=== PATIENT | female | born 1975 | race African-American/Black ===

== ENCOUNTER 2018-07-27 02:18 | Inpatient (IN) | payer BC, OTHER ==
[2018-07-27] VITALS (16 sets, daily range): BP systolic 117–146; BP diastolic 59–75
[~2018-07-27] VITALS: Ht 152.4 cm; Wt 111.6 kg
[~2018-07-27 02:18] MED LIST: ACETAMINOPHEN650 M5 PO; ACIPHEX 20 MG T20 MG PO; BENTYL10 MG PO; CIPROFLOXACIN500 M1 PO; FLAGYL500 MG PO; GLYCOPYRROLATE; LORTAB 5 MG/5001 TA1 PO; NORCO 5-325 TA1 EACH PO; PANTOPRAZOLE SO40 M1 PO; PHENERGAN 25 MG25 M1 PO; ZESTRIL10 MG PO; ZOFRAN ODT4 MG PO; ZOFRAN4 MG PO
[2018-07-27 04:28] LABS: HEMATOCRIT 25.5 % (37.0-47.0); HEMOGLOBIN 8.5 gm/dL (12.0-15.0); MCH 30.8 pg (26.0-34.0); MCHC 33.4 g/dL (28.0-37.0); MCV 92.4 fL (80.0-100.0); RBC 2.76 mil/uL (4.20-5.00); RDW 12.7 % (10.5-14.5); WBC 3.9 thou/uL (4.0-11.0)
[2018-07-27 04:52] LABS: ANION GAP 13 mmol/L (7-16); BUN 7 mg/dL (7-18); CHLORIDE 119 mmol/L (98-107); CO2 16 mmol/L (21-32); CREATININE 0.4 mg/dL (0.6-1.0); DIRECT BILIRUBIN < 0.1 mg/dL (<0.1-0.3); GLUCOSE 100 mg/dL (74-106); LIPASE 24 U/L (73-393); SGOT 9 U/L (15-37); SGPT 10 U/L (30-65); SODIUM 148 mmol/L (136-145); TOTAL BILIRUBIN 0.2 mg/dL (<0.1-1.0); TOTAL PROTEIN 4.2 g/dL (6.4-8.2)
[2018-07-27 04:56] LABS: CALCIUM 5.2 mg/dL (8.5-10.1); POTASSIUM 1.7 mmol/L (3.5-5.1)
[2018-07-27 05:04] LABS: URINE BILIRUBIN NEGATIVE (Negative); URINE BLOOD NEGATIVE (Negative); URINE CLARITY CLEAR; URINE COLOR YELLOW; URINE GLUCOSE-RANDOM* NEGATIVE (Negative); URINE KETONES 3+ (Negative); URINE LEUKOCYTES-REFLEX NEGATIVE (Negative); URINE NITRITE-REFLEX NEGATIVE (Negative); URINE PROTEIN (DIPSTICK) NEGATIVE (Negative); URINE SPECIFIC GRAVITY 1.015 (1.005-1.035); URINE UROBILINOGEN 0.2 E.U./dl (0.2-1.0)
--- NOTE | 2018-07-27 07:24 | NUR ---
DAUGHTER UPDATED ON PT PLAN, ADMISSION TO ICU, CAUSE
--- NOTE | 2018-07-27 09:14 | EKG ---
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: SUZANNA : 1975 Requested By: Anya Pacheco Order Number: [id number] MD: Claudio Ponce Measurements Intervals [place] Rate: 58 P: 61 RI: 167 QRS: 47 QRSD: 100 T: 28 QT: 501 QTc: 493 Interpretive Statements Sinus rhythm Atrial premature complex Prolonged QT interval Compared to ECG 02/21/2013 00:35:05 Atrial premature complex(es) now present Electronically Signed On 07-27-2018 9:14:32 CDT by Claudio Ponce [email or web address] ��������������������������������������������� <ELECTRONICALLY SIGNED> ���������������������������������������� By: Claudio Ponce MD, [facility] ��������������������������������������������� 07/27/18 0914 043 0 Claudio Ponce MD, [facility] /EPI
[2018-07-27 11:07] LABS: CREATININE 0.8 mg/dL (0.6-1.0); MAGNESIUM 2.5 mg/dL (1.8-2.4)
[2018-07-27 11:10] LABS: CALCIUM 8.7 mg/dL (8.5-10.1); POTASSIUM 4.1 mmol/L (3.5-5.1)
--- NOTE | 2018-07-27 15:08 | NUR ---
PT ADMITTED RELATED TO VOMITING, HYPO ELECTROLYTES. CM REVIEWED CHART AND SPOKE WITH CARE TEAM. CM MET WITH PT AT BEDSIDE THIS DAY. PT IS A&O X4. CM ROLE INTRODUCED. PT INDICATED SHE LIVES IN A CONDO WITH HER SON WITH 5 STEPS TO ENTER AND A FULL FLIGHT OF STEPS INSIDE. 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 PT INDICATED SHE HAD HH IN THE PAST WITH A PREVIOUS [facility] BUT NOTHING RECENTLY. PT INICATED SHE PLANS TO RETURN HOME ONCE MEDICALLY STABLE. CM TO FOLLOW INDICATED WITH DC PLANNING.
[2018-07-27] MEDS ORDERED: LOSARTAN-HCTZ1 EAC1 PO (18:25)
[2018-07-27] MEDS ORDERED: CELEXA10 MG PO (18:27)
[2018-07-27] MEDS ORDERED: BENTYL 20 MG TA20 M1 PO (18:28)
[2018-07-27 19:16] LABS: ALBUMIN 3.2 g/dL (3.4-5.0); CALCIUM 8.3 mg/dL (8.5-10.1); CREATININE 0.7 mg/dL (0.6-1.0); MAGNESIUM 2.1 mg/dL (1.8-2.4); POTASSIUM 3.7 mmol/L (3.5-5.1); TOTAL BILIRUBIN 0.2 mg/dL (<0.1-1.0); TOTAL PROTEIN 6.6 g/dL (6.4-8.2)
[2018-07-28] VITALS (13 sets, daily range): BP systolic 116–152; BP diastolic 50–88
--- NOTE | 2018-07-28 05:28 | NUR ---
ASSUMED PT CARE AT 1900 WITH NO SIGN OF DISTRESS NOTED. PT IS ALERT AND ORIENTED. VITAL SIGNS STABLE. ASSESSMENT COMPLETED AND CHARTED. SCHEDULED MEDS ADMINISTERED TO PT. PT IS STABLE THROUGHOUT THE NIGHT. DENIES ANY FURTHER NEEDS AT THIS TIME.
[2018-07-28 09:18] LABS: ABSOLUTE NEUTROPHILS 2.5 thou/uL (1.4-8.2); BASOPHILS 0.9 % (0.0-2.0); EOSINOPHILS 0.4 % (0.0-3.0); HEMATOCRIT 33.8 % (37.0-47.0); LYMPHOCYTES 39.9 % (24.0-44.0); MCH 30.9 pg (26.0-34.0); MCHC 33.8 g/dL (28.0-37.0); MCV 91.5 fL (80.0-100.0); MONOCYTES 8.7 % (1.0-8.0); PLATELET COUNT 230 thou/uL (150-400); POLYS 50.1 % (36.0-66.0); RBC 3.69 mil/uL (4.20-5.00); RDW 13.5 % (10.5-14.5); WBC 4.9 thou/uL (4.0-11.0)
[2018-07-28 09:31] LABS: HEMOGLOBIN 11.4 gm/dL (12.0-15.0)
[2018-07-28 09:32] LABS: CALCIUM 8.5 mg/dL (8.5-10.1); CREATININE 0.9 mg/dL (0.6-1.0); POTASSIUM 3.9 mmol/L (3.5-5.1)
[2018-07-28] MEDS ORDERED: MIRALAX17 GM PO (11:04)
[2018-07-28] MEDS ORDERED: TYLENOL325 MG PO (11:04)
--- NOTE | 2018-07-28 11:58 | NUR ---
AAOX4 VERY PLESANT AND COOPERTIVE. DENIES NAUSEA AND PAIN. RIGHT WRIST WITH DRY OTTONIEL. IV'S D/C'D FROM RIGHT IJ AND LEFT HAND. REVIEWED DISCHARGE PAPERS AND PATIENT VERBALIZED UNDERSTANDING AND DENIES QUESTIONS. DISHCARGED TO HOME ACCOMPAINIED BY MOTHER.
== END 2018-07-28 12:01 | disposition home or self-care (01) | DRG 641 ==
LOC: ER 02:18 → EROBS 05:48 → ICU 05:48 → EROBS 07:36 → ICU 07:46
PROVIDERS: Emergency Medicine; Nurse Practitioner; ADMIT Internal Medicine
DX: E87.6 Hypokalemia (principal); E46 Unspecified protein-calorie malnutrition; Z68.42 Body mass index [BMI] 45.0-49.9, adult; K58.9 Irritable bowel syndrome, unspecified; D64.9 Anemia, unspecified; Z79.1 Long term (current) use of non-steroidal anti-inflammatories (NSAID); Z79.899 Other long term (current) drug therapy; Z88.6 Allergy status to analgesic agent; Z88.8 Allergy status to other drugs, medicaments and biological substances
CPT/HCPCS: 10078

== ENCOUNTER 2018-08-28 01:19 | Inpatient (IN) | payer BC, OTHER ==
[~2018-08-28] VITALS: Ht 170.2 cm; Wt 103.9 kg
[2018-08-28] VITALS (7 sets, daily range): BP systolic 135–179; BP diastolic 62–92
[~2018-08-28 01:19] MED LIST changes: +BENTYL 20 MG TA20 M1 PO; +CELEXA10 MG PO; +LOSARTAN-HCTZ1 EAC1 PO; +MIRALAX17 GM PO; +TYLENOL325 MG PO
[2018-08-28] MEDS ORDERED: KEFLEX500 M1 PO (01:32)
[2018-08-28] MEDS ORDERED: AZELASTINE137 MCG/0. INH (01:32)
[2018-08-28] MEDS ORDERED: IBUPROFEN 600600 M1 PO (01:34)
[2018-08-28] MEDS ORDERED: TRAMADOL 50 MG50 MG PO (01:34)
[2018-08-28] MEDS ORDERED: 24HR ALLERGY REL5 MG PO (01:34)
[2018-08-28 01:43] LABS: ABSOLUTE NEUTROPHILS 7.2 thou/uL (1.4-8.2); BASOPHILS 0.4 % (0.0-2.0); EOSINOPHILS 0.2 % (0.0-3.0); HEMATOCRIT 38.7 % (37.0-47.0); LYMPHOCYTES 13.3 % (24.0-44.0); MCH 30.6 pg (26.0-34.0); MCHC 33.7 g/dL (28.0-37.0); MCV 90.8 fL (80.0-100.0); PLATELET COUNT 305 thou/uL (150-400); POLYS 77.1 % (36.0-66.0); RBC 4.26 mil/uL (4.20-5.00); WBC 9.3 thou/uL (4.0-11.0)
[2018-08-28 02:03] LABS: ANION GAP 13 mmol/L (7-16); BUN 18 mg/dL (7-18); CALCIUM 9.3 mg/dL (8.5-10.1); CHLORIDE 100 mmol/L (98-107); CO2 26 mmol/L (21-32); GLUCOSE 145 mg/dL (74-106); LIPASE 30 U/L (73-393); SGOT 12 U/L (15-37); SGPT 20 U/L (30-65); SODIUM 139 mmol/L (136-145); TOTAL BILIRUBIN 0.4 mg/dL (<0.1-1.0); TOTAL PROTEIN 7.9 g/dL (6.4-8.2); TROPONIN-I <0.06 ng/mL (<0.06)
[2018-08-28 02:04] LABS: POTASSIUM 2.9 mmol/L (3.5-5.1)
--- NOTE | 2018-08-28 02:19 | NUR ---
PATIENT TO CT AT THIS TIME
--- NOTE | 2018-08-28 03:31 | NUR ---
SECOND IV PLACED FOR MEDICATION ORDERS TO INFUSE
--- NOTE | 2018-08-28 04:14 | NUR ---
HANDOFF TOOL SENT TO CCU. INPAITENT TESTER SOUNDMORIAH AT BEDSIDE FOR PATIENT EVALUATION
--- NOTE | 2018-08-28 04:24 | NUR ---
REPORT TO AISHA ON [facility]
--- NOTE | 2018-08-28 07:16 | NUR ---
PT ARRIVED FROM ER VIA CART. PLACED IN ROOM 349. ADMISSION ASSESSMENTS COMPLETED. PT REPORTING MIDLINE UPPER ABDOMINAL PAIN OVER THE PAST 24 HOUSR THAT BEGAN ALONG WITH NAUSEA AND VOMITING. DENIES ANY COFFEE GROUND, DARK OR GREEN COLORED EMESIS. NO BM SINCE THU, THE DAY OF HER PAROTIDECTOMY. LAB VALUES NOTED. ORDERS IN PROGRESS.
[2018-08-28 08:45] LABS: MAGNESIUM 2.3 mg/dL (1.8-2.4); POTASSIUM 3.3 mmol/L (3.5-5.1)
--- NOTE | 2018-08-28 11:18 | EKG ---
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: tia : 1975 Requested By: Sumit Pacheco Order Number: [id number] MD: Claudio Ponce Measurements Intervals [place] Rate: 62 P: 69 [place]: 156 QRS: 44 QRSD: 95 T: 32 QT: 446 QTc: 453 Interpretive Statements Sinus rhythm Nonspecific T wave abnormality Compared to ECG 07/27/2018 04:31:46 Atrial premature complex(es) no longer present Prolonged QT interval no longer present Electronically Signed On 08-28-2018 11:18:31 CDT by Claudio Ponce [email or web address] ��������������������������������������������� <ELECTRONICALLY SIGNED> ���������������������������������������� By: Claudio Ponce MD, [facility] ��������������������������������������������� 08/28/18 1118 0123 0123 Claudio Ponce MD, [facility] /EPI
--- NOTE | 2018-08-28 12:02 | NUR ---
ASSUMED CARE OF PT AT 0700. PT AOX4 C/O NAUSEA AND ABDOMINAL DISCOMFORT. SMALL BM AFTER SUPP THIS AM. NOW DRINKING MIRALAX AND MAG CITRATE. COMPAZINE ADDED TO REGIMEN. PT SAYS NAUSEA SLOWLY IMPROVING. CT UNREMARKABLE. UP W/ STEADY GAIT AND SBA. SINUS JAMAAL ON TELEMETRY. WILL CONT TO MONITOR
[2018-08-29 03:01] VITALS: BP 154/78
--- NOTE | 2018-08-29 03:36 | NUR ---
SLEPT PART OF SHIFT. UP AD LESLY WITH SLOW STEADY GAIT. PATIENT STATES WILL CALL FOR ASSISTANCE IF SHE GETS WEAKER OR DIZZY. MAINTAIN SAFE ENVIRONMENT. REMAINS WITH FREQUENT EPISODES OF NAUSEA WITH VOMITING. COMPAZINE GIVES SOME RELIEF. STATES IT IS SOME BETTER. WORKING ON GOALS AND PLAN OF CARE FOR NOC. NOT PROGRESSING AT THIS TIME TOWARDS DISCHARGE GOALS. CONTINUE TO ASSES CLOSELY. HAS SOME UPPER ABDOMANAL PAIN WITHOUT NEED OF MEDICATION. ERIKA DRAIN REMAINS IN PLACE TO LEFT SIDE OF NECK.
--- NOTE | 2018-08-29 03:42 | NUR ---
2300 BP 167/78. IV HYDRALIZINE GIVEN. PATIENT SLEPT FOR AWILE. 0305 BP NOW 154/78. DENIES NEED FOR PRESENT NAUSEA MED OR PAIN MEDICATION.
[2018-08-29 06:06] LABS: HEMOGLOBIN 11.5 gm/dL (12.0-15.0); MCH 30.7 pg (26.0-34.0); MCHC 33.9 g/dL (28.0-37.0); MCV 90.5 fL (80.0-100.0); RBC 3.75 mil/uL (4.20-5.00); RDW 13.1 % (10.5-14.5); WBC 6.2 thou/uL (4.0-11.0)
[2018-08-29 06:16] LABS: CALCIUM 8.6 mg/dL (8.5-10.1); CREATININE 0.8 mg/dL (0.6-1.0); POTASSIUM 3.3 mmol/L (3.5-5.1)
[2018-08-29 07:26] VITALS: BP 150/84
[2018-08-29 16:27] VITALS: BP 132/68
--- NOTE | 2018-08-29 16:40 | NUR ---
PATIENT CONT TO HAVE NAUSEA THIS AM. PRN NAUSEA MEDICATIONS ADMINISTERED. IT WAS EFFECTIVE FOR A FEW HOURS. MEDS HAVE TO BE REPEATED SHE KEEPS HAVING NAUSEA. DR DONTAE REYNOLDS CALLED WITH ORDERS TO HAVE TUBE TO PARTOTIDS REMOVED AND ALSO THAT ABT CAN BE DISCONINUED AND PATIENT STARTED ON PROBIOTICS. SHE IS NOW SLEEPING. WILL CONT WITH PLAN OF CARE.
[2018-08-29 19:44] VITALS: BP 188/89
[2018-08-30 04:00] VITALS: BP 146/89
[2018-08-30 07:17] VITALS: BP 156/83
--- NOTE | 2018-08-30 07:28 | NUR ---
Pt. slept intermittently but fair. Abdominal pain is due to her vomiting per pt. Still unable to keep anything po without getting nauseous. Compazine and zofran given prn with some relief. Up ad nallely in room with gait. Will continue to monitor.
--- NOTE | 2018-08-30 12:26 | NUR ---
assessment: CM REVIEWED CHART AND MET WITH PATIENT AT THE BEDSIDE. PT WAS ADMITTED WITH HYPOKALEMIA. PT IS STILL HAVING N/V. PT REPORTS THAT SHE LIVES IN A CONDO WITH HER SON. PT REPORTS ABOUT 5 STEPS WITH HANDRAIL TO ENTER AND ABOUT 14 STEPS WITH HANDRAILS TO HER BEDROOM. PT REPORTS SHE AMBULATES INDEPENDENTLY AND IS INDEPENDENT WITH ADLS. PT REPORTS SHE HAS HAD HH IN THE PAST BUT HAS NOT HAD IT RECENTLY NOR DOES SHE NEED IT. CM DISCUSSED ROLE. PT DOES NOT ANTICIPATE HAVING ANY NEEDS AT DISCHARGE.
[2018-08-30 12:28] LABS: CALCIUM 8.9 mg/dL (8.5-10.1); CREATININE 0.8 mg/dL (0.6-1.0); POTASSIUM 3.4 mmol/L (3.5-5.1)
--- NOTE | 2018-08-30 13:23 | NUR ---
discharge planning: dp faxed updates to [facility]. KB/sw [facility] is calling them to and will let them know to expect updates. Patient is to discharge tomorrow.
[2018-08-30 15:24] VITALS: BP 153/89
[2018-08-30 19:25] VITALS: BP 162/120
--- NOTE | 2018-08-30 19:30 | NUR ---
PATIENT CONT ON THAVE N/V THROUGH THE DAY AND MEDICATED ACCORDINGLY. NOT SURE IF MEDS ARE THAT EFFECTIVE SHE ASKS FOR THEM LESS THAN AN HOUR AFTER ADMINISTRATION. SHE DID REQUEST DOSE UPWARDS ADJUSTMENT. UP AD LESLY. SLEEPING AT THIS TIME. WILL CONT WITH PLAN OF CARE.
--- NOTE | 2018-08-31 03:11 | NUR ---
ASSESSMENT: PT REMAIN ALERT AND ORIENT TIMES FOUR. UP AD LESLY., DENIES PAIN DOES C/O NAUSEA BUT NOT BAD IT'S BEEN. ANTIEMETICS GIVEN WITH GOOD RESULTS. SLEPT GOOD DURING THE NIGHT. NEW IV INITIATED IN RIGHT FOREARM 22G. IVF INFUSING WITHOUT DIFFICULTY. EGD SCHEDULED FOR THE AM. DID TOLERATE 2 APPLE JUICES. EMESIS IS CLEAR. SR PER MONITOR. SLOW PROGRESS TOWARDS DC GOALS, WILL CONTINUE TO MONITOR.
[2018-08-31 04:23] VITALS: BP 160/59
[2018-08-31 04:40] LABS: URINE BILIRUBIN NEGATIVE (Negative); URINE BLOOD NEGATIVE (Negative); URINE CLARITY CLEAR; URINE COLOR YELLOW; URINE GLUCOSE-RANDOM* NEGATIVE (Negative); URINE KETONES TRACE (Negative); URINE LEUKOCYTES-REFLEX NEGATIVE (Negative); URINE NITRITE-REFLEX NEGATIVE (Negative); URINE PROTEIN (DIPSTICK) NEGATIVE (Negative); URINE SPECIFIC GRAVITY 1.015 (1.005-1.035); URINE UROBILINOGEN 0.2 E.U./dl (0.2-1.0)
[2018-08-31 05:40] LABS: HEMATOCRIT 36.2 % (37.0-47.0); HEMOGLOBIN 12.2 gm/dL (12.0-15.0); MCH 30.3 pg (26.0-34.0); MCHC 33.6 g/dL (28.0-37.0); MCV 90.2 fL (80.0-100.0); RBC 4.01 mil/uL (4.20-5.00); RDW 12.7 % (10.5-14.5); WBC 7.1 thou/uL (4.0-11.0)
[2018-08-31 05:51] LABS: CALCIUM 8.6 mg/dL (8.5-10.1); CREATININE 0.7 mg/dL (0.6-1.0); MAGNESIUM 2.1 mg/dL (1.8-2.4); POTASSIUM 3.7 mmol/L (3.5-5.1)
[2018-08-31 07:37] VITALS: BP 178/93
[2018-08-31 15:11] VITALS: BP 177/102
--- NOTE | 2018-08-31 16:34 | P ---
[facility] [place] [address] [address] PROCEDURE REPORT Name: VERA LIPSCOMB Room #: 349-I ADM IN M.R.#: [id number] Admission: 08/28/18 ������������������ Attend Phys: Marvel Goddard MD Discharge: ������������������ Date of : 71 Report #: [id number] THIS REPORT FOR: //name// CC: FAM unknown Marvel Goddard INPATIENT UPPER ENDOSCOPY REPORT BRIEF HISTORY: The patient is a 43-year-old woman who had recent parotid gland surgery and she has had persistent nausea and some vomiting since her surgery. PREOPERATIVE DIAGNOSIS: Persistent nausea and vomiting. POSTOPERATIVE DIAGNOSES: 1. Multiple non-bleeding duodenal bulb ulcers. 2. Diffuse gastritis with a few antral erosions. MEDICATIONS: Deep sedation with propofol per Anesthesia. SPECIMEN: Biopsy of gastritis. ESTIMATED BLOOD LOSS: 3 mL. PROCEDURE: EGD with biopsy. FINDINGS: Prior to propofol sedation, the procedure of upper endoscopy was discussed with the patient as well as potential risks and its complications. She indicates she understands and desires to proceed. DESCRIPTION OF PROCEDURE: With the patient in the left lateral decubitus position, the Olympus video endoscope was inserted in the cervical esophagus under direct vision without difficulty. Examination of this organ to its entire length revealed normal esophageal mucosa down the squamocolumnar junction. Squamocolumnar junction was inspected and noted to be unremarkable. No ulcers or erosions were seen. A significant hiatus hernia was not seen. The scope was advanced into the stomach, which was examined on end views as well as retroflexed views. Examination of the proximal stomach on end views as well as retroflexed views revealed a patch of erythema in the upper body of the stomach, likely secondary to vomiting. The mucosa was intact and no ulcers were seen. The proximal stomach mucosa was otherwise unremarkable. Examination of the distal stomach revealed a diffuse gastritis with a few scattered erosions in the antrum. However, no ulcers were seen. There was no evidence of outlet obstruction. There were no retained solids or liquids within the stomach. The scope was advanced across the pylorus into the duodenum. In the distal duodenal bulb, there were multiple ulcers. They were shallow ulcers; the largest was about 4 x 12 mm. There were 2-3 other smaller ulcers, no more than about 6 mm. They were flat. There was no stigmata of bleeding. No clots were seen. The [address] [address] PROCEDURE REPORT Name: VERA LIPSCOMB ENEDELIA Room #: 349-I ADM IN M.R.#: [id number] Admission: 08/28/18 ������������������ Attend Phys: Marvel Goddard MD Discharge: ������������������ Date of : 71 Report #: [id number] ulcers had a benign appearance. The scope was advanced into the second portion of the duodenum, which was inspected and noted to be unremarkable. At that point, the scope was slowly withdrawn and careful circumferential views confirmed the above findings. The patient tolerated the procedure well. Biopsies obtained of the gastritis. DISPOSITION: The patient with persistent nausea and vomiting following surgery. She does have ulcers as noted. There was no evidence of outlet obstruction or bleeding. We will have her continue PPI. We will also add a transdermal scopolamine patch to be used until her symptoms of nausea have improved. We will follow up on biopsies with regard to the H. pylori. If positive, she may require antibiotic treatment. ��������������������������������������������� <ELECTRONICALLY SIGNED> ���������������������������������������� By: Yuriy Bustamante MD ��������������������������������������������� 08/31/18 1634 1152 1251 Yuriy Bustamante MD /nt
--- NOTE | 2018-08-31 18:36 | NUR ---
PATIENT HAD EGD DONE THIS AM. SEE NEW ORDERS. SHE DOES STILL COMPLAIN OF NAUSEA AND VOMITING BUT MORE OF NUSEA. PRN MEDS ADMININSTERED. IV SITE NOTED TO HAVE INFILTRATED. IV TEAM CALLED FOR NEW IV. UP AD LESLY WITH STEADY GAIT. WILL CONT WITH PLAN OF CARE.
[2018-08-31 20:00] VITALS: BP 149/67
--- NOTE | 2018-08-31 21:09 | NUR ---
ASSUMED PT CARE AROUND 190. A&OX4. C/O ABDOMINAL PAIN AND NAUSEA, WHICH PT STATES IS IMPROVING. BP ELEVATED; IMPROVED WITH MEDICATION. REPORT CALLED TO RECEIVED RN ON MED/SURG UNIT. PT TRANSFERED TO NEW UNIT AROUND 2104.
[2018-09-01 03:25] VITALS: BP 142/80
--- NOTE | 2018-09-01 05:30 | NUR ---
Pt transferred from @2104 in stable condition. A/OX4,VSS.Denied pain on assessment. C/o nausea with one episode of clear emesis,pt had been medicated with Zofran prior to episode and reported the medication provoked it. Medicated with Compazine with relief reported. C/o SZYMANSKI medicated with Fentanyl with relief reported. Up ad nallely without any problems. Encouraged to call for help as needed.
[2018-09-01 07:46] VITALS: BP 158/95
[2018-09-01] MEDS ORDERED: COMPAZINE10 MG PO (12:50)
[2018-09-01] MEDS ORDERED: PANTOPRAZOLE SO40 M1 PO (12:50)
[2018-09-01] MEDS ORDERED: CARAFATE 11 GM/10 M1 PO (12:50)
--- NOTE | 2018-09-01 14:06 | PATH ---
[facility] [place] [address] PATHOLOGY RPT PROCEDURE Name: VERA LIPSCOMB Room #: 417-I ADM IN M.R.#: [id number] ������������������ Admission: 08/28/18 ������������������ Date of : 71 Discharge: Report #: [id number] Path Case #: [id number] [facility] Accession Number: [id number] . 01 Material submitted: . stomach - GASTRITIS . 01 Clinical history: . Pre-OP DX: Nausea, vomiting, abdominal pain Post-OP DX: Duodenal ulcers, gastritis . 02 Diagnosis: Gastric mucosa, gastritis, rule out H. pylori, endoscopic biopsy: - Mild reactive gastropathy. - Negative for intestinal metaplasia or atrophy. - Negative for Helicobacter pylori (properly controlled immunohistochemical stain performed). (IUV:pit; 09/01/2018) QTP/09/01/2018 . 02 Electronically signed: . Elvira Dykes MD, Pathologist NPI- [id number] . 01 Gross description: . Received in formalin labeled "Vera Lipscomb, BX gastritis, rule out H. pylori," are 3 segments of mercedes soft tissue measuring 1.4 x 0.8 x 0.3 cm in aggregate dimensions and ranging from 0.4 to 0.8 cm in maximum dimension. The specimen is submitted entirely in cassette A1. (TSD; 08/31/2018) TOB/TOB . 02 Pathologist provided ICD-10: K31.9 . 02 CPT . 835797, W22054 Specimen Comment: A courtesy copy of this report has been sent to Specimen Comment: [phone], . Specimen Comment: Report sent to DR PURVIS / DR ALFRAO Performed at: 01 [place] [id number] [id number] MD Ray Bueno MD Phone: [phone] Performed at: [address] [id number] [address] [address] PATHOLOGY RPT PROCEDURE Name: VERA LIPSCOMB Room #: 417-I ADM IN M.R.#: [id number] ������������������ Admission: 08/28/18 ������������������ Date of : 71 Discharge: Report #: [id number] Path Case #: [id number] MD Elvira Dykes MD Phone: [phone]
--- NOTE | 2018-09-01 15:42 | NUR ---
PT A&OX4, UP AD LESLY, IV RESTARTED IN L UPPER ARM. PT IS VERY NAUSEATED TODAY RECEIVING IV ANTIEMETICS AND PAIN MEDS THROUGHOUT THE DAY, VOMITING CL THIN EMESIS. PLANS ARE TO DC TODAY. WILL CONT POC.
[2018-09-01 16:33] VITALS: BP 158/95
--- NOTE | 2018-09-01 17:05 | NUR ---
DC ORDERS RECEIVED, DC INSTRUCTIONS, SCRIPTS AND F/U APPOINTMENT REVEIWED WITH PT. IV REMOVED FROM L UA, VOLUNTEER TRANSFERED PT TO FRONT ENTRANCE.
[2018-09-01 17:14] VITALS: BP 156/101
== END 2018-09-01 17:17 | disposition home or self-care (01) | DRG 384 ==
LOC: ER 01:19 → 3W 03:42 → 4E 03:42 → EROBS 03:42 → 3W 04:29 → 4E 08-31 21:12 → ENTRNSPT 09-01 16:59 → 4E 09-01 17:17
PROVIDERS: Emergency Medicine; Nurse Practitioner; ADMIT Internal Medicine
PROC: 0DB78ZX Excision of Stomach, Pylorus, Via Natural or Artificial Opening Endoscopic, Diagnostic (ICD-10-PCS; principal; 2018-08-31)
DX: K26.9 Duodenal ulcer, unspecified as acute or chronic, without hemorrhage or perforation (principal); I10 Essential (primary) hypertension; E66.9 Obesity, unspecified; E87.6 Hypokalemia; E83.42 Hypomagnesemia; K29.70 Gastritis, unspecified, without bleeding; K59.00 Constipation, unspecified; F41.1 Generalized anxiety disorder; K58.9 Irritable bowel syndrome, unspecified; K21.9 Gastro-esophageal reflux disease without esophagitis; G43.909 Migraine, unspecified, not intractable, without status migrainosus; K59.03 Drug induced constipation; T40.605A Adverse effect of unspecified narcotics, initial encounter; Z88.6 Allergy status to analgesic agent; Z88.8 Allergy status to other drugs, medicaments and biological substances; Z79.899 Other long term (current) drug therapy; Z68.35 Body mass index [BMI] 35.0-35.9, adult; Y92.89 Other specified places as the place of occurrence of the external cause
CPT/HCPCS: 10084; 10183; 10879; 70005

== ENCOUNTER 2019-03-18 07:18 | Emergency (ER) | payer BC, OTHER ==
[~2019-03-18] VITALS: Ht 170.2 cm; Wt 103.2 kg
--- NOTE | ~2019-03-18 | EKG ---
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
[~2019-03-18 07:18] MED LIST changes: +24HR ALLERGY REL5 MG PO; +AZELASTINE137 MCG/0. INH; +CARAFATE 11 GM/10 M1 PO; +COMPAZINE10 MG PO; +IBUPROFEN 600600 M1 PO; +KEFLEX500 M1 PO; +TRAMADOL 50 MG50 MG PO
[2019-03-18 08:06] LABS: BASOPHILS 0.5 % (0.0-2.0); EOSINOPHILS 0.6 % (0.0-3.0); HEMATOCRIT 38.5 % (37.0-47.0); HEMOGLOBIN 12.8 gm/dL (12.0-15.0); LYMPHOCYTES 18.7 % (24.0-44.0); MCH 30.1 pg (26.0-34.0); MCHC 33.2 g/dL (28.0-37.0); MCV 90.6 fL (80.0-100.0); PLATELET COUNT 258 thou/uL (150-400); POLYS 72.2 % (36.0-66.0); RBC 4.25 mil/uL (4.20-5.00); RDW 13.3 % (10.5-14.5); WBC 4.1 thou/uL (4.0-11.0)
[2019-03-18 08:26] LABS: ANION GAP 11 mmol/L (7-16); BUN 8 mg/dL (7-18); CALCIUM 9.4 mg/dL (8.5-10.1); CHLORIDE 101 mmol/L (98-107); CO2 24 mmol/L (21-32); CREATININE 0.8 mg/dL (0.6-1.0); GLUCOSE 154 mg/dL (74-106); POTASSIUM 3.1 mmol/L (3.5-5.1); SODIUM 136 mmol/L (136-145)
[2019-03-18 08:37] LABS: ALBUMIN 4.2 g/dL (3.4-5.0); LIPASE 44 U/L (73-393); SGOT 15 U/L (15-37); SGPT 22 U/L (30-65); TOTAL BILIRUBIN 0.4 mg/dL (<0.1-1.0); TOTAL PROTEIN 8.2 g/dL (6.4-8.2); TROPONIN-I <0.06 ng/mL (<0.06)
[2019-03-18 08:52] LABS: URINE BILIRUBIN NEGATIVE (Negative); URINE BLOOD TRACE (Negative); URINE CLARITY CLEAR; URINE COLOR YELLOW; URINE GLUCOSE-RANDOM* NEGATIVE (Negative); URINE KETONES 2+ (Negative); URINE LEUKOCYTES-REFLEX NEGATIVE (Negative); URINE NITRITE-REFLEX NEGATIVE (Negative); URINE PROTEIN (DIPSTICK) TRACE (Negative); URINE UROBILINOGEN 0.2 E.U./dl (0.2-1.0)
[2019-03-18] MEDS ORDERED: PANTOPRAZOLE SO40 M1 PO (09:42)
[2019-03-18] MEDS ORDERED: CARAFATE1 GM PO (09:43)
[2019-03-18] MEDS ORDERED: ONDANSETRON ODT4 MG PO (09:45)
[2019-03-18 09:55] VITALS: BP 126/69
== END 2019-03-18 10:00 | disposition home or self-care (01) ==
LOC: ER 07:18
PROVIDERS: Emergency Medicine
DX: K29.70 Gastritis, unspecified, without bleeding (principal); R11.2 Nausea with vomiting, unspecified; I10 Essential (primary) hypertension; E66.9 Obesity, unspecified; Z88.5 Allergy status to narcotic agent; Z88.8 Allergy status to other drugs, medicaments and biological substances